=== PATIENT | male | born 1985 | race Two or more races ===

== ENCOUNTER → 2019-08-13 | Emergency (ER) | payer BC, OTHER ==
[~2019-08-13] VITALS: Ht 170.2 cm; Wt 89.8 kg
[2019-08-13 09:06] VITALS: BP 156/85
== END | disposition home or self-care (01) ==
LOC: ER 08:58
DX: H00.022 Hordeolum internum right lower eyelid (principal)

== ENCOUNTER 2020-05-24 18:13 | Emergency (ER) | payer BC ==
[~2020-05-24] VITALS: Ht 170.2 cm; Wt 81.6 kg
[2020-05-24] MEDS ORDERED: ASPirin 81 mg TAB PO ONE (18:45)
[2020-05-24 19:22] LABS: Basophils # (auto) 0 10 ^3/uL (0-0.2); Basophils % (auto) 0.4 % (0.0-2.0); Eosinophils # (auto) 0 10 ^3/uL (0-0.8); Eosinophils % (auto) 0.8 % (0.0-7.0); Hematocrit 45.3 % (41.0-53.0); Hemoglobin 15.8 g/dL (13.5-17.5); Lymphocytes # (auto) 2.4 10 ^3/uL (0.4-5.4); Lymphocytes % (auto) 44.2 % (10.0-50.0); Mean Corpuscular Hemoglobin 29.5 pg (28.0-32.0); Mean Corpuscular Hgb Conc. 34.8 g/dL (32.0-36.0); Mean Corpuscular Volume 84.9 fL (80.0-100.0); Monocytes # (auto) 0.4 10 ^3/uL (0-1.3); Monocytes % (auto) 7.1 % (0.0-12.0); Neutrophils # (auto) 2.6 10 ^3/uL (1.6-8.6); Neutrophils % (auto) 47.5 % (37.0-80.0); Nucleated Red Blood Cells % 0.2 %; Platelet Count (auto) 213 10^3/uL (140-450); Red Blood Cells 5.34 10^6/uL (4.5-5.90); Red Cell Distribution Width 13.4 % (11.8-14.3); White Blood Cell 5.5 10^3/uL (4.4-10.8)
[2020-05-24 19:38] LABS: Anion Gap 6 (5-15); Blood Urea Nitrogen 14 mg/dL (7-18); Calcium 8.3 mg/dL (8.5-10.1); Carbon Dioxide 27 mmol/L (21-32); Chloride 104 mmol/L (98-107); Glucose 120 mg/dL (74-106); Potassium 3.8 mmol/L (3.5-5.1); Sodium 137 mmol/L (136-145)
[2020-05-24 19:45] LABS: Alanine Aminotransferase 37 U/L (16-61); Alkaline Phosphatase 90 U/L (45-117); Aspartate Aminotransferase 21 U/L (15-37); BUN/Creatinine Ratio 14.1; Bilirubin, Total 0.5 mg/dL (0.2-1.0); GFR African American 113 mL/min; GFR Non-African American 93 mL/min; Total Protein 7.9 g/dL (6.4-8.2)
[2020-05-24 21:48] VITALS: BP 130/87
== END 2020-05-24 21:50 | disposition home or self-care (01) ==
LOC: ER 18:13
DX: R07.89 Other chest pain (principal)
CPT/HCPCS: 36415; 71046; 80053; 84484; 85025; 93005